=== PATIENT | female | born 2000 | race Caucasian/White ===

== ENCOUNTER 2019-06-05 18:44 | Emergency (ER) | payer OTHER ==
[~2019-06-05] VITALS: Ht 157.5 cm; Wt 72.6 kg
[~2019-06-05 18:44] MED LIST: FLAGYL500 MG PO
[2019-06-05] MEDS ORDERED: PROAIR HFA8.5 GM INH (20:29)
[2019-06-05] MEDS ORDERED: BENZONATATE200 MG PO (20:29)
[2019-06-05 20:58] VITALS: BP 102/69
== END 2019-06-05 20:58 | disposition home or self-care (01) ==
LOC: ER 18:44
DX: J06.9 Acute upper respiratory infection, unspecified (principal); R05 Cough; R11.2 Nausea with vomiting, unspecified; G43.909 Migraine, unspecified, not intractable, without status migrainosus; Z88.8 Allergy status to other drugs, medicaments and biological substances; Z87.442 Personal history of urinary calculi